=== PATIENT | male | born 1955 | race Caucasian/White ===

== ENCOUNTER 2024-12-08 15:29 | Emergency (ER) | payer MEDICARE, OTHER, SELFPAY ==
[2024-12-08] VITALS (22 sets, daily range): BP systolic 95–119; BP diastolic 52–88; PULSE 63–75; RESP 12–22; TEMP 36.3–36.6; O2SAT 94–100
--- NOTE | ~2024-12-08 | XR_ITS ---
XR chest 2V Ordering provider: Susy Stafford III, DO History: 69 years Male with . SOB, weakness . Comparison: None. FINDINGS: MEDIASTINUM: The cardiac silhouette is not enlarged. LUNGS: No infiltrates, effusions or pneumothorax. OTHER: No free air under the diaphragm. IMPRESSION: No acute cardiopulmonary pathology. Reviewed, dictated and finalized at location A.
--- NOTE | 2024-12-08 16:07 | ECG_ITS ---
Test Date: 2024-12-08 16:14:56 Measurements Intervals O'Brien Rate: 60 P: 43 VA: 209 QRS: 15 QRSD: 90 T: 25 QT: 348 QTc: 350 Interpretive Statements SINUS RHYTHM BORDERLINE AV CONDUCTION DELAY ST ELEVATION IN DIFFUSE LEADS- PROBABLY EARLY REPOLARIZATION ABNORMALITY BASELINE ARTIFACT- I, III, AVR, AVL BORDERLINE ECG No previous ECG available for comparison Electronically Signed On 12-08-2024 16:54:29 CDT by Xavi Thakur D.O.
[2024-12-08 16:21] LABS: Basophils Absolute Auto 0.1 K/mm3 (0.0-0.1); Basophils Percent Auto 0.4 % (0.2-1.2); Eosinophils Absolute Auto 0.1 K/mm3 (0-0.3); Hematocrit 41.3 % (42.0-52.0); Hemoglobin 13.8 g/dL (14.0-18.0); Immature Granulocyte Absolute 0.03 K/mm3 (0.00-0.031); Immature Granulocyte Percent A 0.3 % (0-0.5); Lymphocytes Absolute Auto 1.95 K/mm3 (0.9-3.2); Lymphocytes Percent Auto 16.3 % (18.3-44.2); Mean Corpuscular HGB Conc 33.4 g/dl (32-36); Mean Corpuscular Hemoglobin 26.9 pg (26-34); Mean Corpuscular Volume 80.5 fl (80-100); Mean Platelet Volume 10.3 fl (7.4-10.4); Monocytes Absolute Auto 1.2 K/mm3 (0.1-0.6); Monocytes Percent Auto 9.9 % (2.6-8.5); Neutrophils Absolute Auto 8.6 K/mm3 (1.3-6.7); Neutrophils Percent Auto 72.1 % (45.5-73.1); Platelet Count Result 292 k/mm3 (150-375); Red Blood Count 5.13 M/mm3 (4.6-6.20); Red Cell Distribution Width 12.7 % (11.5-14.5)
[2024-12-08 16:34] LABS: Alanine Aminotransferase 30 U/L (6-50); Albumin Level 4.5 g/dL (3.5-5.1); Alkaline Phosphatase 69 U/L (38-126); Anion Gap 12 mmol/L (4-12); Aspartate Amino Transferase 43 U/L (17-59); Bilirubin,Total 0.4 mg/dL (0.2-1.3); Blood Urea Nitrogen 42 mg/dL (9-20); Calcium 9.7 mg/dL (8.4-10.2); Carbon Dioxide 20 mmol/L (22-30); Chloride 101 mmol/L (98-107); Estimated CRCL calculation 25 ml/min; Estimated Glomerular Filt Rate 28; Glucose 114 mg/dL (65-110); Potassium 4.9 mmol/L (3.4-5.0); Sodium 133 mmol/L (137-145); Total Protein 8.1 g/dL (6.3-8.2)
[2024-12-08 17:12] LABS: Add Urine Microscopic? NO; Appearance Urine Clear (Clear); Bilirubin Urine Negative (Negative); Blood Urine Negative (Negative); Color Urine Yellow (Yellow); Glucose Urine UA Negative (Negative); Ketones Urine Negative (Negative); Leukocyte Esterase Ur Negative LEU/UL (Negative); Nitrate Urine Negative (Negative); Protein Urine Negative (Negative); Specific Grav Ur 1.012 (1.001-1.035); Urobilinogen Urine 0.2 mg/dL (<2.0)
[2024-12-08] MEDS: SODIUM CHLORIDE 0.9% IV 1,000 ML 999 ML IV CONT ×2 (17:28→18:18)
--- NOTE | 2024-12-08 18:46 | ED_ITS ---
HPI - General Adult General Chief complaint: Environmental Exposure <Wilton Marie MD - Last Filed: 12/08/24 18:56> Stated complaint: cramping in hands and feet, heat exposure <Wilton Marie MD - Last Filed: 12/08/24 18:56> Time Seen by Provider: 12/08/24 16:59 <Wilton Marie MD - Last Filed: 12/08/24 18:56> Source: patient <Wilton Marie MD - Last Filed: 12/08/24 18:56> Mode of arrival: ambulatory <Wilton Marie MD - Last Filed: 12/08/24 18:56> Limitations: no limitations <Wilton Marie MD - Last Filed: 12/08/24 18:56> History of Present Illness HPI narrative: 69 year history this is complaint feeling dizzy, finger numbness to his with the extremities for past several hours. 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 Had nausea initially however by the time he got to the ER his symptoms have improved. Denies any fever or chills no history of chest pain or shortness of breath. <Wilton Marie MD - Last Filed: 12/08/24 18:56> Onset (ago): day(s) (1) <Wilton Marie MD - Last Filed: 12/08/24 18:56> Related Data Allergies/adverse reactions: Allergies Allergy/AdvReac Type Severity Reaction Status Date / Time No Known Allergies Allergy Verified 12/08/24 17:24 <Wilton Marie MD - Last Filed: 12/08/24 18:56> Review of Systems 2 Review of Systems: All systems reviewed & are unremarkable except as noted in HPI and below <Wilton Marie MD - Last Filed: 12/08/24 18:56> Constitutional: Constitutional: Reports no additional constitutional complaints <MD Bindu Rashid Last Filed: 12/08/24 18:56> Eyes: Eyes: Reports no additional eye complaints <MD Bindu Rashid Last Filed: 12/08/24 18:56> ENT: Reports system reviewed and no additional complaints, except as documented <Wilton Marie MD - Last Filed: 12/08/24 18:56> Cardiovascular: Cardiovascular: Reports no additional cardiovascular complaints <Wilton Marie MD - Last Filed: 12/08/24 18:56> Respiratory: Respiratory: Reports no additional respiratory complaints < Wilton Marie MD - Last Filed: 12/08/24 18:56> Gastrointestinal: Gastrointestinal: Reports no additional gastrointestinal complaints <Wilton Marie MD - Last Filed: 12/08/24 18:56> Musculoskeletal: Musculoskeletal: Reports as per HPI <Wilton Marie MD - Last Filed: 12/08/24 18:56> Neurologic: Reports system reviewed and no additional complaints, except as documented <Wilton Marie MD - Last Filed: 12/08/24 18:56> Endocrine: Endocrine: Reports no additional endocrine complaints <Wilton Marie MD - Last Filed: 12/08/24 18:56> Exam 2 Narrative: GENERAL: Well-appearing, well-nourished, and in no acute distress. HEAD: Normocephalic, atraumatic. EYES: PERRLA and EOMI. ENT: Nares clear, NECK: Supple. CHEST: Clear to auscultation. No respiratory distress. HEART: Regular rate and rhythm. No murmur heard. Normal peripheral pulses. ABDOMEN: Soft, nontender, nondistended, normal active bowel sounds. EXTREMITIES: Normal range of motion. No edema. SKIN: Warm, dry, no rash. NEURO: No focal deficits. Alert and oriented x3. PSYCH: Normal mood and affect. <Wilton Marie MD - Last Filed: 12/08/24 18:56> Course Course Emergency Course: Patient feeling slightly better. I did him and his family about his family about his lab work. Will administer a L of normal saline and recheck his kidney function . Patient was kidney issues. His creatinine is 2 .31. <Wilton Marie MD - Last Filed: 12/08/24 18:56> Vital Signs Vital signs: Vital Signs Temperature 97.3 F L 12/08/24 15:45 Pulse Rate 68 12/08/24 15:45 Respiratory Rate 18 12/08/24 15:45 Blood Pressure 109/52 L 12/08/24 15:45 Pulse Oximetry 100 12/08/24 15:45 Oxygen Delivery Room Air 12/08/24 15:45 Temperature 97.9 F 12/08/24 20:14 Pulse Rate 72 12/08/24 20:14 Respiratory Rate 17 12/08/24 20:14 Blood Pressure 117/67 12/08/24 20:14 Pulse Oximetry 100 12/08/24 20:14 Oxygen Delivery Room Air 12/08/24 15:45 <Wilton Marie MD - Last Filed: 12/08/24 18:56> Vital Signs Temperature 97.3 F L 12/08/24 15:45 Pulse Rate 68 12/08/24 15:45 Respiratory Rate 18 12/08/24 15:45 Blood Pressure 109/52 L 12/08/24 15:45 Pulse Oximetry 100 12/08/24 15:45 Oxygen Delivery Room Air 12/08/24 15:45 Temperature 97.9 F 12/08/24 20:14 Pulse Rate 72 12/08/24 20:14 Respiratory Rate 17 12/08/24 20:14 Blood Pressure 117/67 12/08/24 20:14 Pulse Oximetry 100 12/08/24 20:14 Oxygen Delivery Room Air 12/08/24 15:45 <Sami Elliott MD - Last Filed: 12/09/24 00:48> Medical Decision Making MDM Narrative Medical decision making narrative: Patient care signed out to me by the daytime physician. Plan at sign-out was discharged pending improvement in the patient's BMP. Patient did have an initial creatinine of 2.31 was treated with IV fluids and patient's creatinine improved to 1.61. On re-evaluation patient states he does feel improved. Patient was encouraged to continue his fluid rehydration and have outpatient follow-up with primary care physician to have his labs rechecked. Patient was comfortable the plan for discharge and close follow-up. All questions concerns were addressed. <Sami Elliott MD - Last Filed: 12/09/24 00:48> Differential Diagnosis Differential Diagnosis: Heat exhaustion, dehydration LULY from hypovolemia <Wilton Marie MD - Last Filed: 12/08/24 18:56> Medical Records Medical records reviewed: Yes I reviewed the external patient's medical records. <Wilton Marie MD - Last Filed: 12/08/24 18:56> Vital Signs Vital Signs: Vital Signs Temperature 97.3 F L 12/08/24 15:45 Pulse Rate 68 12/08/24 15:45 Respiratory Rate 18 12/08/24 15:45 Blood Pressure 109/52 L 12/08/24 15:45 Pulse Oximetry 100 12/08/24 15:45 Oxygen Delivery Room Air 12/08/24 15:45 Temperature 97.9 F 12/08/24 20:14 Pulse Rate 72 12/08/24 20:14 Respiratory Rate 17 12/08/24 20:14 Blood Pressure 117/67 12/08/24 20:14 Pulse Oximetry 100 12/08/24 20:14 Oxygen Delivery Room Air 12/08/24 15:45 <Wilton Marie MD - Last Filed: 12/08/24 18:56> Vital Signs Temperature 97.3 F L 12/08/24 15:45 Pulse Rate 68 12/08/24 15:45 Respiratory Rate 18 12/08/24 15:45 Blood Pressure 109/52 L 12/08/24 15:45 Pulse Oximetry 100 12/08/24 15:45 Oxygen Delivery Room Air 12/08/24 15:45 Temperature 97.9 F 12/08/24 20:14 Pulse Rate 72 12/08/24 20:14 Respiratory Rate 17 12/08/24 20:14 Blood Pressure 117/67 12/08/24 20:14 Pulse Oximetry 100 12/08/24 20:14 Oxygen Delivery Room Air 12/08/24 15:45 <Sami Elliott MD - Last Filed: 12/09/24 00:48> Lab Data Lab results reviewed: Yes I reviewed the patient's lab results. <Wilton Marie MD - Last Filed: 12/08/24 18:56> Result diagrams: 12/08/24 16:13 12/08/24 19:25 <Wilton Marie MD - Last Filed: 12/08/24 18:56> Labs: Lab Results 12/08/24 12/08/24 12/08/24 Range/Units 16:13 17:05 19:25 WBC 12.0 H (4.5-10.0) K/mm3 RBC 5.13 (4.6-6.20) M/mm3 Hgb 13.8 L (14.0-18.0) g/dL Hct 41.3 L (42.0-52.0) % MCV 80.5 (80-100) fl MCH 26.9 (26-34) pg MCHC 33.4 (32-36) g/dl RDW 12.7 (11.5-14.5) % Plt Count 292 (150-375) k/mm3 MPV 10.3 (7.4-10.4) fl Immature Gran % (Auto) 0.3 (0-0.5) % Neut % (Auto) 72.1 (45.5-73.1) % Lymph % (Auto) 16.3 L (18.3-44.2) % Hamb[place] % (Auto) 9.9 H (2.6-8.5) % Eos % (Auto) 1.0 (0-4.4) % Baso % (Auto) 0.4 (0.2-1.2) % Lymph # (Auto) 1.95 (0.9-3.2) K/mm3 Hamblen # (Auto) 1.2 H (0.1-0.6) K/mm3 Eos # (Auto) 0.1 (0-0.3) K/mm3 Baso # (Auto) 0.1 (0.0-0.1) K/mm3 Abs Immat Gran (auto) 0.03 (0.00-0.031) K/mm3 Absolute Neuts (auto) 8.6 H (1.3-6.7) K/mm3 Absolute Nucleated RBC 0.000 (0.0-0.012) K/mm3 Nucleated RBC % 0.0 (0.0-0.2) % Sodium 133 L 135 L (137-145) mmol/L Potassium 4.9 4.6 (3.4-5.0) mmol/L Chloride 101 109 H (98-107) mmol/L Carbon Dioxide 20 L 19 L (22-30) mmol/L Anion Gap 12 7 (4-12) mmol/L BUN 42 H 40 H (9-20) mg/dL Creatinine 2.31 H 1.61 H (0.7-1.3) mg/dL Estim Creat Clear Calc 25 36 ml/min Estimated GFR 28 L 43 L (59 - ) Glucose 114 H 114 H (65-110) mg/dL Calcium 9.7 8.7 (8.4-10.2) mg/dL Total Bilirubin 0.4 (0.2-1.3) mg/dL AST 43 (17-59) U/L ALT 30 (6-50) U/L Alkaline Phosphatase 69 (38-126) U/L Total Protein 8.1 (6.3-8.2) g/dL Albumin 4.5 (3.5-5.1) g/dL Urine Color Yellow (Yellow) Urine Appearance Clear (Clear) Urine pH 5.0 (5.0-9.0) Ur Specific Mccomb 1.012 (1.001-1.035) Urine Protein Negative (Negative) mg/dL Urine Glucose (UA) Negative (Negative) mg/dL Urine Ketones Negative (Negative) mg/dL Ur Blood (Man) Negative (Negative) Urine Nitrate Negative (Negative) Urine Bilirubin Negative (Negative) Urine Urobilinogen 0.2 (<2.0) mg/dL Leukocyte Esterase Rfl Negative (Negative) FRANCISCO/UL <Wilton Marie MD - Last Filed: 12/08/24 18:56> Lab Results 12/08/24 12/08/24 12/08/24 Range/Units 16:13 17:05 19:25 WBC 12.0 H (4.5-10.0) K/mm3 RBC 5.13 (4.6-6.20) M/mm3 Hgb 13.8 L (14.0-18.0) g/dL Hct 41.3 L (42.0-52.0) % MCV 80.5 (80-100) fl MCH 26.9 (26-34) pg MCHC 33.4 (32-36) g/dl RDW 12.7 (11.5-14.5) % Plt Count 292 (150-375) k/mm3 MPV 10.3 (7.4-10.4) fl Immature Gran % (Auto) 0.3 (0-0.5) % Neut % (Auto) 72.1 (45.5-73.1) % Lymph % (Auto) 16.3 L (18.3-44.2) % Hamb[place] % (Auto) 9.9 H (2.6-8.5) % Eos % (Auto) 1.0 (0-4.4) % Baso % (Auto) 0.4 (0.2-1.2) % Lymph # (Auto) 1.95 (0.9-3.2) K/mm3 Hamb[place] # (Auto) 1.2 H (0.1-0.6) K/mm3 Eos # (Auto) 0.1 (0-0.3) K/mm3 Baso # (Auto) 0.1 (0.0-0.1) K/mm3 Abs Immat Gran (auto) 0.03 (0.00-0.031) K/mm3 Absolute Neuts (auto) 8.6 H (1.3-6.7) K/mm3 Absolute Nucleated RBC 0.000 (0.0-0.012) K/mm3 Nucleated RBC % 0.0 (0.0-0.2) % Sodium 133 L 135 L (137-145) mmol/L Potassium 4.9 4.6 (3.4-5.0) mmol/L Chloride 101 109 H (98-107) mmol/L Carbon Dioxide 20 L 19 L (22-30) mmol/L Anion Gap 12 7 (4-12) mmol/L BUN 42 H 40 H (9-20) mg/dL Creatinine 2.31 H 1.61 H (0.7-1.3) mg/dL Estim Creat Clear Calc 25 36 ml/min Estimated GFR 28 L 43 L (59 - ) Glucose 114 H 114 H (65-110) mg/dL Calcium 9.7 8.7 (8.4-10.2) mg/dL Total Bilirubin 0.4 (0.2-1.3) mg/dL AST 43 (17-59) U/L ALT 30 (6-50) U/L Alkaline Phosphatase 69 (38-126) U/L Total Protein 8.1 (6.3-8.2) g/dL Albumin 4.5 (3.5-5.1) g/dL Urine Color Yellow (Yellow) Urine Appearance Clear (Clear) Urine pH 5.0 (5.0-9.0) Ur Specific [place] 1.012 (1.001-1.035) Urine Protein Negative (Negative) mg/dL Urine Glucose (UA) Negative (Negative) mg/dL Urine Ketones Negative (Negative) mg/dL Ur Blood (Man) Negative (Negative) Urine Nitrate Negative (Negative) Urine Bilirubin Negative (Negative) Urine Urobilinogen 0.2 (<2.0) mg/dL Leukocyte Esterase Rfl Negative (Negative) FRANCISCO/UL <Sami Elliott MD - Last Filed: 12/09/24 00:48> ECG Data EKG #1: ECG completion date: 12/08/24 <Wilton Marie MD - Last Filed: 12/08/24 18:56> ECG completion time: 16:14 <Wilton Marie MD - Last Filed: 12/08/24 18:56> EKG Interpretation: normal rate (60), sinus rhythm, no ST changes, normal QRS, normal QT, NL axis and no acute changes <Wilton Marie MD - Last Filed: 12/08/24 18:56> Discharge Plan Discharge Clinical Impression: LULY (acute kidney injury), Heat exhaustion <Wilton Marie MD - Last Filed: 12/08/24 18:56> Patient Disposition: Home <Wilton Marie MD - Last Filed: 12/08/24 18:56> Condition: Stable <Wilton Marie MD - Last Filed: 12/08/24 18:56> Instructions: Antibiotic Form, Heat Exhaustion (ED) <Wilton Marie MD - Last Filed: 12/08/24 18:56> Additional Instructions: Continue to drink plenty of fluids and have close follow-up with your primary care physician for repeat labs. If you have any worsening symptoms and please call or return to the emergency department. <Wilton Marie MD - Last Filed: 12/08/24 18:56> Patient Language: Northern Irish <Wilton Marie MD - Last Filed: 12/08/24 18:56> Follow-up/Referrals: UNKNOWN,DOCTOR [Primary Care Provider] - <Wilton Marie MD - Last Filed: 12/08/24 18:56>
[2024-12-08 19:52] LABS: Anion Gap 7 mmol/L (4-12); Blood Urea Nitrogen 40 mg/dL (9-20); Calcium 8.7 mg/dL (8.4-10.2); Carbon Dioxide 19 mmol/L (22-30); Chloride 109 mmol/L (98-107); Estimated CRCL calculation 36 ml/min; Estimated Glomerular Filt Rate 43; Glucose 114 mg/dL (65-110); Potassium 4.6 mmol/L (3.4-5.0); Sodium 135 mmol/L (137-145)
== END 2024-12-08 20:13 | disposition home or self-care (01) ==
PROVIDERS: Emergency Medicine; Emergency Provider Family Medicine
DX: N17.9 Acute kidney failure, unspecified (principal); T67.5XXA Heat exhaustion, unspecified, initial encounter; X30.XXXA Exposure to excessive natural heat, initial encounter
CPT/HCPCS: 36415; 71046; 80048; 80053; 81003; 85025; 93005; 96360; 96361; 99283; J7030